=== PATIENT | male | born 1935 | race Caucasian/White ===

== ENCOUNTER 2017-06-01 07:20 | Observation (INO) | payer MEDICARE ==
[~2017-06-01] VITALS: Ht 172.7 cm; Wt 77.1 kg
[2017-06-01] MEDS ORDERED: VENTOLIN HFA18 GM INH (07:36)
[2017-06-01] MEDS ORDERED: QVAR8.7 G1 INH (07:37)
[2017-06-01] MEDS ORDERED: ATORVASTATIN CA20 MG PO (14:41)
[2017-06-01] MEDS ORDERED: QVAR8.7 GM INH (14:41)
[2017-06-01] MEDS ORDERED: GLIMEPIRIDE4 MG PO (14:43)
[2017-06-01] MEDS ORDERED: LANTUS SOL100 UNIT/1 INJ (14:56)
[2017-06-01] MEDS ORDERED: TRADJENTA5 MG PO (14:56)
[2017-06-01] MEDS ORDERED: CLONIDINE HCL0.1 MG PO (14:56)
[2017-06-01] MEDS ORDERED: VITAMIN D31000 UNI1 PO (14:57)
[2017-06-01] MEDS ORDERED: METOPROLOL TART25 MG PO (14:57)
[2017-06-01] MEDS ORDERED: ASCORBIC ACID500 MG PO (14:58)
[2017-06-01] MEDS ORDERED: ASPIRIN EC81 MG PO (14:59)
[2017-06-01] MEDS ORDERED: ASPIR-LOW81 MG PO (14:59)
--- NOTE | 2017-06-01 15:00 | NUR ---
Medications reconciled by pharmacist with patient's pharmacy records and patient interview.
--- NOTE | 2017-06-01 17:52 | NUR ---
PT ON 2L O2, TOLERATING WELL. LUNG SOUNDS IMPROVING. SCHEDULED DUONEB TREATMENTS WHILE AWAKE. PT TOLERATING ADA DIET WELL. PT REPORTS NO PAIN. TOLERATING ADA DIET WELL.
--- NOTE | 2017-06-01 19:05 | NUR ---
PATIENTIN BED WATCHING TV. FAMILY AT BD SIDE.
--- NOTE | 2017-06-01 19:56 | NUR ---
RECIEVED REPORT FROM DAY SHIFT NURSE. PT RESTING IN BED. FAMILY PRESENT IN ROOM. NC IN PLACE. PT DENIES NEEDS. CALL FERNANDEZ IN [place].
--- NOTE | 2017-06-01 20:00 | NUR ---
RESTING QUIETLY IN BED VISITING WITH FAMILY.
--- NOTE | 2017-06-01 22:00 | NUR ---
pATIENT RESTING QUIETLY IN BED WATCHNG TV.
--- NOTE | 2017-06-01 22:14 | EKG ---
[facility] [address] [place] [address] Signed Sinus rhythm with occasional premature ventricular complexes Nonspecific ST and T wave abnormality Abnormal ECG No previous ECGs available Confirmed by HIPOLITO MEHTA MD ([id number] on 06/01/2017 10:14:22 PM Electronically Signed By: HIPOLITO MEHTA MD 06/01/17 2214 PATIENT NAME: LOURDES CORONA Electrocardiogram DATE OF : 35 PHYSICIAN: HIPOLITO MEHTA MD REPORT #: [id number] REPORT IS CONFIDENTIAL AND NOT TO BE RELEASED WITHOUT AUTHORIZATION
--- NOTE | 2017-06-02 00:10 | NUR ---
PATIENT RESTING QUIETLY ON HIS LEFT SIDE ARMS FOLDED. RESPIRATIONS ARE EVEN AND ULABORED.
--- NOTE | 2017-06-02 02:05 | NUR ---
Patient resting quietly with eyes closed, and unlabore and even breathing.
--- NOTE | 2017-06-02 04:21 | NUR ---
PATIENT IS RESTNG QUITELY AND EYES CLOSED. NEB NOT TO BE GIVEN IF PATIENT IS SLEEPING AND HE HAS HIS EYES CLOSED DID NOT STIR TO ME IN THE ROOM. HIS RESPIRATIONS ARE REGULAR AND EVEN.
--- NOTE | 2017-06-02 05:08 | NUR ---
PATIENT WAS UP A COUPLE TIME TO USE THE BATHROOM, BUT OTHER THAN THAT HE HAS PRETTY MUCH RESTED ALL NIGHT WITH HIS EYES CLOSED AND RESPIRATION REGULAR AND UNLABORED. PATIENT IS DIABETIS AND GETTING SLIDING SCALE NOVOLOG AND LEVEMIR.
--- NOTE | 2017-06-02 05:38 | NUR ---
Patient still resting quietly in his bed. eyes closed and even stable breathing.
--- NOTE | 2017-06-02 07:26 | NUR ---
RECIEVED BEDSIDE REPORT FROM STANLEY DUPREE. PT AWAKE AND ALERT IN BED. PT REPORTS "FEELING BETTER".
[2017-06-02] MEDS ORDERED: PREDNISONE20 MG PO (10:02)
[2017-06-02] MEDS ORDERED: CEFUROXIME500 MG PO (10:02)
--- NOTE | 2017-06-02 11:24 | NUR ---
PT UP WITH RESP THERAPY TO DO O2 QUALIFICATION FOR HOME O2. WHILE WALKING BAREFOOT PT WAS PAINFUL AND O2 AT 84% WITHOUT O2. ONCE SHOES WERE PUT ON, PT'S PAIN RESOLVED AND O2 WHILE WALKING WAS 87%. PT WAS 94% AT REST WITHOUT O2. WALKING WITH SHOES AND O2 AT 3L, PT WAS 91%. AT REST WITH 3L, PT WAS 94-96%. MD AWARE, WILL ORDER HOME O2.
--- NOTE | 2017-06-02 13:38 | NUR ---
PT DISCHARGE TEACHING COMPLETE. PT AND SPOUSE VERBALIZED UNDERSTANDING OF CARE INSTRUCTIONS. HOME O2 ORDER GIVEN TO PT. [facility]A IN [place] IS AWARE OF PT NEEDS ONCE HE RETURNS HOME. [facility] HOME. NEEDS 3L O2 WITH ACTIVITY ONLY.
== END 2017-06-02 12:10 | disposition home or self-care (01) ==
LOC: ED 07:20 → MS 07:22
PROVIDERS: ADMIT Internal Medicine
DX: J44.1 Chronic obstructive pulmonary disease with (acute) exacerbation (principal); J96.01 Acute respiratory failure with hypoxia; K59.00 Constipation, unspecified; E11.22 Type 2 diabetes mellitus with diabetic chronic kidney disease; I12.9 Hypertensive chronic kidney disease with stage 1 through stage 4 chronic kidney disease, or unspecified chronic kidney disease; N18.3 Chronic kidney disease, stage 3 (moderate); E11.51 Type 2 diabetes mellitus with diabetic peripheral angiopathy without gangrene; E78.5 Hyperlipidemia, unspecified; Z95.820 Peripheral vascular angioplasty status with implants and grafts; Z87.891 Personal history of nicotine dependence; Z79.82 Long term (current) use of aspirin; Z79.4 Long term (current) use of insulin; Z79.51 Long term (current) use of inhaled steroids; Z79.899 Other long term (current) drug therapy
CPT/HCPCS: 71010; 80053; 82803; 83880; 84484; 85025; 85610; 85730; 93005; 93010; 94640; 94667; 94668; 96374; 99285; G0378; J2930; J7512